=== PATIENT | male | born 1990 | race Caucasian/White ===

== ENCOUNTER 2020-07-05 03:23 | Observation (INO) | payer OTHER, SELFPAY ==
[2020-07-05] MEDS ORDERED: Boostrix 0.5 ML VIAL ONE (03:27)
[2020-07-05 03:45] LABS: #Basophils 0.1 thou/uL (0.0-0.2); #Eosinphils 0.1 thou/uL (0.0-0.7); #Lymphocytes 2.8 thou/uL (1.20-3.40); #Monocytes 0.6 thou/uL (0.11-0.59); #Neutrophils 5.8 thou/uL (1.40-6.50); %Basophils 0.8 % (0.0-1.0); %Eosinophils 0.7 % (0.0-10.0); %Lymphocytes 29.8 % (21.0-51.0); %Monocytes 6.7 % (0.0-10.0); Hemoglobin 15.9 g/dL (14.0-18.0); Mean Corpuscular HGB CONC 32.6 g/dL (32.0-36.0); Mean Corpuscular Hemoglobin 30.5 pg (27.0-31.0); Mean Corpuscular Volume 93.6 fL (78.0-98.0); Mean Platelet Volume 8.7 fL (7.4-10.4); Platelet Count 272 thou/uL (130-400); RBC Distribution Width 11.9 % (11.5-14.5); Red Blood Cell (RBC) Count 5.19 mill/uL (4.70-6.10); White Blood Cell (WBC) Count 9.4 thou/uL (4.8-10.8)
[2020-07-05 03:56] LABS: PTT 26.4 sec (22.9-36.1)
[2020-07-05 04:01] LABS: Prothrombin Time 13.4 sec (12.0-14.7)
[2020-07-05 04:22] LABS: ALT (SGPT) 15 U/L (8-55); AST (SGOT) 21 U/L (5-34); Acetaminophen Less than 6.0 mcg/mL (10.0-30.0); Albumin 4.3 g/dL (3.5-5.0); Alcohol Less than 10 mg/dL (Less than 10); Alkaline Phosphatase 81 U/L (40-110); Anion Gap 14 mmol/L (10-20); BUN (Urea Nitrogen) 11 mg/dL (8.9-20.6); Bilirubin, Total 0.4 mg/dL (0.2-1.2); Calc. Creatinine Clearance 0 mL/min (70-130); Carbon Dioxide 23 mmol/L (22-29); Chloride 102 mmol/L (98-107); Estimated GFR-MDRD 71; Globulin 3.1 g/dL (2.4-3.5); Glucose 140 mg/dL (70-105); Potassium 3.8 mmol/L (3.5-5.1); Protein, Total 7.4 g/dL (6.0-8.3); Salicylate Less than 8.0 mg/dL (15.0-30.0); Sodium 135 mmol/L (136-145)
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
[2020-07-05 07:04] LABS: Lactic Acid 1.2 mmol/L (0.5-2.2)
[2020-07-05] MEDS ORDERED: Morphine 4 MG/ML VIAL SLOW IVP PRN (07:04)
[2020-07-05] MEDS ORDERED: Sodium Chloride 0.9% 1,000 ML IV SCH (07:04)
[2020-07-05] MEDS ORDERED: Ondansetron PF 4 MG/2 ML Vial IVP PRN (07:04)
[2020-07-05] MEDS ORDERED: hydrALAZINE 20 MG/ML VIAL SLOW IVP PRN (07:04)
[2020-07-05] MEDS ORDERED: Dextrose 5% in Water 1,000 ML IV PRN (07:04)
[2020-07-05] MEDS ORDERED: Dextrose 50% Abboject 50 ML SYRINGE SLOW IVP PRN (07:04)
[2020-07-05] MEDS ORDERED: Morphine 2 MG/ML VIAL SLOW IVP PRN (07:04)
[2020-07-05] MEDS ORDERED: Promethazine HCl 25 MG/ML VIAL IM PRN (07:04)
[2020-07-05] MEDS ORDERED: traMADol HCl 50 MG TAB PO PRN (07:04)
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
[2020-07-05] MEDS ORDERED: Famotidine/PF 20 mg/2ml Vial SLOW IVP SCH (09:00)
[2020-07-05] MEDS ORDERED: Famotidine 20 MG TAB PO SCH (09:00)
[2020-07-05] MEDS ORDERED: Non-Formulary Item 1 EACH (Lithium Carbonate [Lithium Carbonate] 300 MG Tablet) PO SCH (09:00)
[2020-07-05] MEDS ORDERED: LAMOTRIGINE 50 MG PO SCH (09:00)
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
[2020-07-05 11:00] LABS: Amphetamine Not Detected (NotDetected); Barbiturates Screen Not Detected (NotDetected); Benzodiazepine Screen Not Detected (NotDetected); Cocaine Metabolite Screen Not Detected (NotDetected); Medtox Control Line Valid? VALID (VALID); Medtox Reader # READER 1; Methadone Not Detected (NotDetected); Methamphetamine Not Detected (NotDetected); Opiate Screen Not Detected (NotDetected); Oxycodone Screen Not Detected (NotDetected); Phencyclidine (PCP) Not Detected (NotDetected); THC/Cannabinoid Screen Not Detected (NotDetected); Tricyclic Screen Not Detected (NotDetected)
[2020-07-05] MEDS ORDERED: Lithium Carbonate 150 MG CAP PO SCH ×2 (11:30→21:00)
[2020-07-05] MEDS ORDERED: lamoTRIgine 25 MG TAB PO SCH (11:30)
[2020-07-05] MEDS ORDERED: Iopamidol 370 76% 100 ML VIAL ONE (13:26)
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
[2020-07-05 15:53] VITALS: BP 128/67; TEMP 99.5
[2020-07-05] MEDS ORDERED: Acetaminophen 500 MG TAB PO PRN (17:10)
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
[2020-07-06] MEDS ORDERED: lamoTRIgine 25 MG TAB PO SCH (09:00)
[2020-07-06] MEDS ORDERED: FLU VACC QS2020-21(6MOS UP)/PF 60 MCG/0.5 ML SYRINGE IM ONE (09:00)
[2020-07-06 11:55] LABS: SARS-CoV-2 MS2 Positive; SARS-CoV-2 N Gene Negative; SARS-CoV-2 S Gene Negative; SARS-CoV-2 by NAA Not Detected (NotDetected); SARS-CoV-2 orf1ab Negative
== END 2020-07-05 18:08 | disposition short-term general hospital (02) ==
LOC: ERS 03:23 → INTOOBSV 05:43 → SURG B 05:43
PROVIDERS: ADMIT Surgery; ATTEND Surgery
DX: S21.112A Laceration without foreign body of left front wall of thorax without penetration into thoracic cavity, initial encounter (principal); S27.2XXA Traumatic hemopneumothorax, initial encounter; T79.7XXA Traumatic subcutaneous emphysema, initial encounter; F23 Brief psychotic disorder; F31.9 Bipolar disorder, unspecified; Z79.899 Other long term (current) drug therapy; Z20.828 Contact with and (suspected) exposure to other viral communicable diseases; X78.1XXA Intentional self-harm by knife, initial encounter
CPT/HCPCS: 36415; 71045; 71275; 80053; 80178; 80306; 80307; 83605; 85025; 85610; 85730; 86850; 86900; 86901; 87635; 90471; 90715; 96365; G0378; G0390; J0690; Q9967; U0003